=== PATIENT | female | born 1985 | race African-American/Black ===

== ENCOUNTER 2018-04-13 18:18 | Emergency (ER) | payer BC, OTHER ==
[~2018-04-13] VITALS: Ht 152.4 cm; Wt 64.9 kg
[~2018-04-13 18:18] MED LIST: BENADRYL25 MG PO; NOHOMEMEDICATIONS; ONDANSETRON HCL4 M2 PO; PEPCID20 MG PO; PEPCID40 MG PO; PREDNISONE 20 M20 MG PO
[2018-04-13 18:30] VITALS: BP 138/91
[2018-04-13] MEDS ORDERED: BUTALB-APAP-CA1 EACH PO (18:36)
== END 2018-04-13 19:35 | disposition left against medical advice (07) ==
LOC: ER 18:18
DX: R51 Headache (principal); H53.2 Diplopia; M79.601 Pain in right arm; Z88.0 Allergy status to penicillin; J45.909 Unspecified asthma, uncomplicated

== ENCOUNTER 2020-12-25 11:08 | Inpatient (IN) | payer BC, OTHER ==
[~2020-12-25] VITALS: Ht 154.9 cm; Wt 62.4 kg
[~2020-12-25 11:08] MED LIST changes: +BUTALB-APAP-CA1 EACH PO
[2020-12-25 11:22] VITALS: BP 130/91
[2020-12-25 12:09] LABS: URINE BILIRUBIN NEGATIVE (Negative); URINE BLOOD NEGATIVE (Negative); URINE CLARITY SL CLOUDY; URINE COLOR YELLOW; URINE GLUCOSE-RANDOM* NEGATIVE (Negative); URINE KETONES NEGATIVE (Negative); URINE LEUKOCYTES-REFLEX NEGATIVE (Negative); URINE NITRITE-REFLEX NEGATIVE (Negative); URINE PROTEIN (DIPSTICK) 2+ (Negative); URINE SPECIFIC GRAVITY >= 1.030 (1.005-1.035); URINE UROBILINOGEN 0.2 E.U./dl (0.2-1.0)
[2020-12-25 12:19] LABS: SQUAMOUS >10 Many /LPF (0-3)
[2020-12-25 12:20] LABS: BACTERIA-REFLEX >30 Many /HPF (None Seen); CASTS None Seen /LPF (None Seen); CRYSTALS None Seen /LPF (None Seen); URINE RBC None Seen /HPF (0-2); URINE WBC-REFLEX 0-5 Rare /HPF (0-5)
[2020-12-25 12:27] LABS: BASOPHILS 0.6 % (0.0-2.0); HEMATOCRIT 29.8 % (37.0-47.0); HEMOGLOBIN 9.5 gm/dL (12.0-15.0); LYMPHOCYTES 16.5 % (24.0-44.0); MCH 23.3 pg (26.0-34.0); MCHC 31.9 g/dL (28.0-37.0); MCV 72.9 fL (80.0-100.0); MONOCYTES 6.5 % (1.0-8.0); PLATELET COUNT 260 thou/uL (150-400); POLYS 75.4 % (36.0-66.0); RBC 4.09 mil/uL (4.20-5.00); RDW 17.4 % (10.5-14.5)
[2020-12-25 12:36] LABS: CALCIUM 9.3 mg/dL (8.5-10.1); CREATININE 0.6 mg/dL (0.6-1.0); POTASSIUM 3.7 mmol/L (3.5-5.1)
[2020-12-25 12:43] LABS: ALBUMIN 3.7 g/dL (3.4-5.0); TOTAL BILIRUBIN 0.3 mg/dL (0.2-1.0); TOTAL PROTEIN 8.2 g/dL (6.4-8.2)
[2020-12-25 14:51] VITALS: BP 137/86
[2020-12-25 14:56] VITALS: BP 115/67
[2020-12-25 16:15] VITALS: BP 142/90
--- NOTE | 2020-12-25 17:03 | NUR ---
Pt transferred from MRI after ED approx 1630. Pt a&ox4. Pain controlled. IVF and IV antibiotics infusing. NPO. Admission completed. Covid neg. Call light within reach. Will continue to monitor.
[2020-12-25 19:55] VITALS: BP 145/91
--- NOTE | 2020-12-25 22:58 | NUR ---
I HAVE GONE OVER THE ASSESSMENT CHARTED BY NEEL SANCHEZ LPN, AND I CONCUR.
[2020-12-26 03:22] VITALS: BP 127/86
--- NOTE | 2020-12-26 04:47 | NUR ---
RESIDENT ALERT AND ORIENTATED X4. NO C/O PAIN OR DISCOMFORT DURING SHIFT CHANGE. PT. REQUESTED HEATING PAD FOR BACK. PAD DELIVERED ABOUT 2230 PAD WORKING WITH HEAT BEING DELIVERD TO AREA OF CONCERN. PATIENT HAD CONCERN ABOUT POSSIBLE TREATMENTS AVAILABLE. REEDUCATED PT. ON DR. FISH IN AM TO SPEAK WITH HER CONCERNING PANCREATITIS AND OPTIONS AVAILABLE. RESTLESS NIGHT PT C/ PAIN ABOUT 2300 REFUSED MORPHINE STATED WOULD WAIT FOR NEXT DOSE OF PRN @ 0030. PRN GIVEN @ 0030 EFFECTIVE . HEATENG PAD FUNTIONING WITH TEMP APPROPRIATE SETTING. WILL CONTINUE TO MONITOR.NO CURRENT C/O PAIN OR DISCOMFORT NOTED.
[2020-12-26 05:14] LABS: HEMATOCRIT 26.2 % (37.0-47.0); HEMOGLOBIN 8.3 gm/dL (12.0-15.0); MCH 23.5 pg (26.0-34.0); MCHC 31.7 g/dL (28.0-37.0); RBC 3.54 mil/uL (4.20-5.00); RDW 17.3 % (10.5-14.5); WBC 5.3 thou/uL (4.0-11.0)
[2020-12-26 05:36] LABS: ALBUMIN 2.8 g/dL (3.4-5.0); CALCIUM 7.5 mg/dL (8.5-10.1); CREATININE 0.5 mg/dL (0.6-1.0); POTASSIUM 3.4 mmol/L (3.5-5.1); TOTAL BILIRUBIN 0.5 mg/dL (0.2-1.0); TOTAL PROTEIN 6.1 g/dL (6.4-8.2)
[2020-12-26 07:00] VITALS: BP 117/88
[2020-12-26 08:20] VITALS: BP 96/62
--- NOTE | 2020-12-26 09:12 | NUR ---
ASSESSMENT: CM REVIEWED CHART AND SPOKE WITH PATIENT. PT IS ALERT AND ORIENTED X4. PT REPORTS LIVING IN AN APT WITH HER SON. PT REPORTS SHE IS FULLY INDEPENDENT WITH ADLS AND AMBULATION. PT REPORTS NO HX OF HH. PT REPORTS HAVING A PCP. CM DISCUSSED ROLE. PT DOES NOT ANTICIPATE HAVING ANY NEEDS FROM CM. PT WAS ADMITTED DU TO PANCREATITIS AND REMAINS ON IV FLUIDS. CM WILL CONTINUE TO FOLLOW TO ASSIST NEEDED.
--- NOTE | 2020-12-26 09:30 | NUR ---
Assumed care of pt at 0700. Pt a&ox4. Pain controlled. IVF and IV antibiotics infusing. Advanced to CL diet. Up ad liam. Call light within reach. Will continue to monitor.
[2020-12-26 09:50] LABS: CHOLESTEROL 121 mg/dL (<200); HDL CHOLESTEROL 40 mg/dL (>40); LDL CHOLESTEROL 72 mg/dL (<100); TRIGLYCERIDE 48 mg/dL (<150); VLDL 10 mg/dL (<40)
[2020-12-26 16:46] VITALS: BP 129/91
[2020-12-26 20:05] VITALS: BP 132/91
--- NOTE | 2020-12-27 04:44 | NUR ---
PT WAS OBSERVED SITTING IN THE RECLINER IN HER ROOM WATCHING TV AT SHIFT CHANGE.PT C/O PAIN,MANAGED WITH MED.PT CONT ON IVF AND IV ABX ORDERED.PT ANDREW CLEAR LIQUIDS.PT ABLE TO MAKE HER NEEDS KNOWN.CALL LIGHT WITHIN REACH.
[2020-12-27 06:17] LABS: CALCIUM 8.1 mg/dL (8.5-10.1); CREATININE 0.6 mg/dL (0.6-1.0); MAGNESIUM 1.7 mg/dL (1.8-2.4); POTASSIUM 3.2 mmol/L (3.5-5.1); TOTAL BILIRUBIN 0.3 mg/dL (0.2-1.0); TOTAL PROTEIN 6.5 g/dL (6.4-8.2)
[2020-12-27 08:00] VITALS: BP 139/95
[2020-12-27] MEDS ORDERED: ULTRAM50 MG PO (10:27)
[2020-12-27 10:47] VITALS: BP 139/95
--- NOTE | 2020-12-27 11:23 | NUR ---
ON-GOING ASSESSMENT: CM REVIEWED CHART. PT HAS ORDERS TO DISCHARGE HOME TODAY WITH NO NEEDS. CASE CLOSED.
--- NOTE | 2020-12-27 11:36 | NUR ---
Assumed pt care at 7am.Pt in bed resting and very anxious about dc home today. Assessment completed.vss.Pt had full liq tray for breakfast.Dr Antonio here,dc order noted.Dc summary compile and reviewed with pt.Rx and dc summary copy given.Saline lock dc'd.At 1130,pt dc home in [place] with mom.
== END 2020-12-27 11:37 | disposition home or self-care (01) | DRG 440 ==
LOC: ER 11:08 → 4S 14:07 → EROBS 14:07 → 4S 15:01
PROVIDERS: Emergency Medicine; Hospitalist; ADMIT Hospitalist; ATTEND Surgery
DX: K85.90 Acute pancreatitis without necrosis or infection, unspecified (principal); J45.909 Unspecified asthma, uncomplicated; Z20.822 Contact with and (suspected) exposure to COVID-19; Z88.0 Allergy status to penicillin; Z79.899 Other long term (current) drug therapy
CPT/HCPCS: 10195